=== PATIENT | male | born 1985 | race African-American/Black ===

== ENCOUNTER 2021-03-13 07:50 | Emergency (ER) | payer OTHER ==
[~2021-03-13] VITALS: Ht 175.3 cm; Wt 79.9 kg
[2021-03-13 08:13] VITALS: BP 124/91
== END 2021-03-13 09:26 | disposition home or self-care (01) ==
LOC: ED 08:41
DX: U07.1 COVID-19 (principal); J06.9 Acute upper respiratory infection, unspecified; J01.10 Acute frontal sinusitis, unspecified; B97.89 Other viral agents as the cause of diseases classified elsewhere; R51.9 Headache, unspecified
CPT/HCPCS: 99283; U0003; U0005